=== PATIENT | male | born 1995 | race Caucasian/White ===

== ENCOUNTER 2018-05-10 18:37 | Inpatient (IN) | payer MEDICAID ==
--- NOTE | 2018-05-10 19:20 | CR ---
INDICATION: Decreased oxygen saturation after eating. TECHNIQUE: Chest 1 views COMPARISON: Chest x-ray 01/21/2015 FINDINGS: Cardiovascular and mediastinum: Heart size and vasculature are normal in caliber and appearance. Lungs and pleural spaces: Lungs are clear. No sign of infiltrate or mass. No sign of pleural effusion. No pneumothorax. Bones and soft tissues: Leftward curvature thoracolumbar spine. IMPRESSION: No acute findings and no significant changes from the prior exam. Dictated by Celso Ramsay MD @ May 10 2018 7:18PM Signed by Dr. Celso Ramsay @ May 10 2018 7:19PM
[2018-05-10] MEDS ORDERED: Albuterol/Ipratropium 3.0-0.5 MG/3 ML Neb Soln NEB ONE (19:28)
[2018-05-10] MEDS ORDERED: Sodium Chloride 0.9% 1,000 ML IV ONE (19:28)
--- NOTE | 2018-05-10 19:31 | EDM.PDOC ---
ED HPI GENERAL MEDICAL PROBLEM - General Chief Complaint: Respiratory Problem Stated Complaint: OXYGEN LEVELS DOWN Time Seen by Provider: 05/10/18 19:30 Source of Information: Reports: Patient - History of Present Illness INITIAL COMMENTS - FREE TEXT/NARRATIVE: HISTORY AND PHYSICAL: History of present illness: [Patient presents with dad I private vehicle Dad noticed some hypoxia after dinner tonightAnd brought him in for evaluation patient is in no distress he has a history of DMD is on prednisone 5 mg by mouth daily on initial exam he did have slight wheeze on the right did provide Solu-Medrol and DuoNeb which seemed to improve O2 saturation however with some observation that did again to drop and again requires blow-by oxygen Unable to obtain review of systems ] Review of systems: As per history of present illness and below otherwise all systems reviewed and negative. Past medical history: As per history of present illness and as reviewed below otherwise noncontributory. Surgical history: As per history of present illness and as reviewed below otherwise noncontributory. Social history: No reported history of drug or alcohol abuse. Family history: As per history of present illness and as reviewed below otherwise noncontributory. Physical exam: HEENT: Atraumatic, normocephalic, pupils reactive, negative for conjunctival pallor or scleral icterus, mucous membranes moist, throat clear, neck supple, nontender, trachea midline. Lungs: Clear to auscultation, breath sounds equal bilaterally, chest nontender. Heart: S1S2, regular, negative for clicks, rubs, or JVD. Abdomen: Soft, nondistended, nontender. Negative for masses or hepatosplenomegaly. Negative for costovertebral tenderness. Pelvis: Stable nontender. Genitourinary: Deferred. Rectal: Deferred. Extremities: Atraumatic, negative for cords or calf pain. Neurovascular unremarkable. Neuro: Awake, alert, Exam nonfocal. Diagnostics: [CBC CMP UA troponin blood cultures 2 Chest 1 view EKG ] Therapeutics: normal saline Solu-Medrol 125 mg IV DuoNeb patient admitted for observation ] Impression: [Hypotension Hypoxia ]chronic history of baseline Definitive disposition and diagnosis as appropriate pending reevaluation and review of above. 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 autism Psychiatric History: Reports: Autism - Infectious Disease History Infectious Disease History: Reports: Chicken Pox Social & Family History - Family History Family Medical History: Noncontributory - Tobacco Use Second Hand Smoke Exposure: No - Recreational Drug Use Recreational Drug Use: No ED ROS GENERAL - Review of Systems Review Of Systems: See Below ED EXAM, GENERAL - Physical Exam Exam: See Below Course - Vital Signs Last Recorded V/S: Last Vital Signs Temp 97.9 F 05/10/18 18:56 Pulse 135 H 05/10/18 21:33 Resp 20 05/10/18 21:33 BP 121/89 05/10/18 21:33 Pulse Ox 90 L 05/10/18 21:34 - Orders/Labs/Meds Orders: Active Orders 24 hr Category Date Time Status EKG Documentation Completion [RC] STAT Care 05/10/18 19:28 Active RT Aerosol Therapy [RC] ASDIRECTED Care 05/10/18 19:29 Active CULTURE BLOOD [BC] Stat Lab 05/10/18 19:46 Results CULTURE BLOOD [BC] Stat Lab 05/10/18 19:58 Results Azithromycin [Zithromax] 500 mg Med 05/10/18 21:39 Ordered Sodium Chloride 0.9% [Normal Saline] 250 ml IV ONETIME Blood Culture x2 Reflex Set [OM.PC] Stat Oth 05/10/18 19:30 Ordered Labs: Laboratory Tests 05/10/18 05/10/18 05/10/18 Range/Units 19:10 19:10 20:10 WBC 5.38 (4.0-11.0) K/uL RBC 5.07 (4.50-5.90) M/uL Hgb 16.2 (13.0-17.0) g/dL Hct 47.9 (38.0-50.0) % MCV 94.5 (80.0-98.0) fL MCH 32.0 (27.0-32.0) pg MCHC 33.8 (31.0-37.0) g/dL RDW Std Deviation 47.1 (28.0-62.0) fl RDW Coeff of [place] 14 (11.0-15.0) % Plt Count 228 (150-400) K/uL MPV 8.90 (7.40-12.00) fL Neut % (Auto) 85.3 H (48.0-80.0) % Lymph % (Auto) 7.6 L (16.0-40.0) % [place] % (Auto) 6.7 (0.0-15.0) % Eos % (Auto) 0.0 (0.0-7.0) % Baso % (Auto) 0.4 (0.0-1.5) % Neut # (Auto) 4.6 (1.4-5.7) K/uL Lymph # (Auto) 0.4 L (0.6-2.4) K/uL [place] # (Auto) 0.4 (0.0-0.8) K/uL Eos # (Auto) 0.0 (0.0-0.7) K/uL Baso # (Auto) 0.0 (0.0-0.1) K/uL Nucleated RBC % 0.0 /100WBC Nucleated RBCs # 0 K/uL Lactate (0.20-2.00) mmol/L Sodium 137 (136-148) mmol/L Potassium 4.0 (3.5-5.1) mmol/L Chloride 100 (98-107) mmol/L Carbon Dioxide 28.5 (21.0-32.0) mmol/L BUN 7 (7.0-18.0) mg/dL Creatinine 0.3 L (0.8-1.3) mg/dL Est Cr Clr Drug Dosing TNP Estimated GFR (MDRD) > 60.0 ml/min Glucose 133 H (74-106) mg/dL Calcium 9.4 (8.5-10.1) mg/dL Total Bilirubin 0.4 (0.2-1.0) mg/dL AST 88 H (15-37) IU/L ALT 52 (14-63) IU/L Alkaline Phosphatase 101 (46-116) U/L Troponin I < 0.050 (0.000-0.056) ng/mL Total Protein 7.7 (6.4-8.2) g/dL Albumin 4.0 (3.4-5.0) g/dL Globulin 3.7 (2.6-4.0) g/dL Albumin/Globulin Ratio 1.1 (0.9-1.6) Urine Color YELLOW Urine Appearance CLEAR Urine pH 6.5 (5.0-8.0) Ur Specific [place] 1.010 (1.001-1.035) Urine Protein NEGATIVE (NEGATIVE) mg/dL Urine Glucose (UA) NEGATIVE (NEGATIVE) mg/dL Urine Ketones NEGATIVE (NEGATIVE) mg/dL Urine Occult Blood SMALL H (NEGATIVE) Urine Nitrite NEGATIVE (NEGATIVE) Urine Bilirubin NEGATIVE (NEGATIVE) Urine Urobilinogen 1.0 (<2.0) EU/dL Ur Leukocyte Esterase NEGATIVE (NEGATIVE) Urine RBC 1-2 (0-2/HPF) Urine WBC 0-1 (0-5/HPF) Ur Epithelial Cells RARE (NONE-FEW) Urine Bacteria RARE (NEGATIVE) 05/10/18 Range/Units 20:43 WBC (4.0-11.0) K/uL RBC (4.50-5.90) M/uL Hgb (13.0-17.0) g/dL Hct (38.0-50.0) % MCV (80.0-98.0) fL MCH (27.0-32.0) pg MCHC (31.0-37.0) g/dL RDW Std Deviation (28.0-62.0) fl RDW Coeff of [place] (11.0-15.0) % Plt Count (150-400) K/uL MPV (7.40-12.00) fL Neut % (Auto) (48.0-80.0) % Lymph % (Auto) (16.0-40.0) % [place] % (Auto) (0.0-15.0) % Eos % (Auto) (0.0-7.0) % Baso % (Auto) (0.0-1.5) % Neut # (Auto) (1.4-5.7) K/uL Lymph # (Auto) (0.6-2.4) K/uL [place] # (Auto) (0.0-0.8) K/uL Eos # (Auto) (0.0-0.7) K/uL Baso # (Auto) (0.0-0.1) K/uL Nucleated RBC % /100WBC Nucleated RBCs # K/uL Lactate 1.2 (0.20-2.00) mmol/L Sodium (136-148) mmol/L Potassium (3.5-5.1) mmol/L Chloride (98-107) mmol/L Carbon Dioxide (21.0-32.0) mmol/L BUN (7.0-18.0) mg/dL Creatinine (0.8-1.3) mg/dL Est Cr Clr Drug Dosing Estimated GFR (MDRD) ml/min Glucose (74-106) mg/dL Calcium (8.5-10.1) mg/dL Total Bilirubin (0.2-1.0) mg/dL AST (15-37) IU/L ALT (14-63) IU/L Alkaline Phosphatase (46-116) U/L Troponin I (0.000-0.056) ng/mL Total Protein (6.4-8.2) g/dL Albumin (3.4-5.0) g/dL Globulin (2.6-4.0) g/dL Albumin/Globulin Ratio (0.9-1.6) Urine Color Urine Appearance Urine pH (5.0-8.0) Ur Specific [place] (1.001-1.035) Urine Protein (NEGATIVE) mg/dL Urine Glucose (UA) (NEGATIVE) mg/dL Urine Ketones (NEGATIVE) mg/dL Urine Occult Blood (NEGATIVE) Urine Nitrite (NEGATIVE) Urine Bilirubin (NEGATIVE) Urine Urobilinogen (<2.0) EU/dL Ur Leukocyte Esterase (NEGATIVE) Urine RBC (0-2/HPF) Urine WBC (0-5/HPF) Ur Epithelial Cells (NONE-FEW) Urine Bacteria (NEGATIVE) Meds: Medications Discontinued Medications Generic Name Dose Route Start Last Admin Trade Name Freq PRN Reason Stop Dose Admin Albuterol/Ipratropium 3 ml 05/10/18 19:28 05/10/18 19:54 Duoneb 3.0-0.5 Mg/3 Ml NEB 05/10/18 19:29 3 ml ONETIME ONE Administration Sodium Chloride 1,000 mls @ 999 mls/hr 05/10/18 19:28 05/10/18 19:54 Normal Saline IV 05/10/18 20:28 999 mls/hr STAT ONE Administration Methylprednisolone Sodium Succinate 125 mg 05/10/18 20:53 05/10/18 20:57 Solu-Medrol IVPUSH 05/10/18 20:54 125 mg ONETIME ONE Administration Methylprednisolone Sodium Succinate Confirm 05/10/18 20:54 05/10/18 21:25 Solu-Medrol Administered 05/10/18 20:55 Not Given Dose 125 mg .ROUTE .STK-MED ONE Departure - Departure Time of Disposition: 21:41 Disposition: Admitted As Inpatient 65 Condition: Fair Clinical Impression: Hypoxia - Discharge Information Referrals: PCP,None [Primary Care Provider] - Forms: ED Department Discharge - My Orders Last 24 Hours: My Active Orders 05/10/18 19:28 EKG Documentation Completion [RC] STAT 05/10/18 19:29 RT Aerosol Therapy [RC] ASDIRECTED 05/10/18 19:30 Blood Culture x2 Reflex Set [OM.PC] Stat 05/10/18 19:46 CULTURE BLOOD [BC] Stat 05/10/18 19:58 CULTURE BLOOD [BC] Stat 05/10/18 21:39 Azithromycin [Zithromax] 500 mg Sodium Chloride 0.9% [Normal Saline] 250 ml IV ONETIME - Assessment/Plan Last 24 Hours: My Active Orders 05/10/18 19:28 EKG Documentation Completion [RC] STAT 05/10/18 19:29 RT Aerosol Therapy [RC] ASDIRECTED 05/10/18 19:30 Blood Culture x2 Reflex Set [OM.PC] Stat 05/10/18 19:46 CULTURE BLOOD [BC] Stat 05/10/18 19:58 CULTURE BLOOD [BC] Stat 05/10/18 21:39 Azithromycin [Zithromax] 500 mg Sodium Chloride 0.9% [Normal Saline] 250 ml IV ONETIME
[2018-05-10 19:50] LABS: CHLORIDE,CL 100 mmol/L (98-107); SODIUM,NA 137 mmol/L (136-148)
[2018-05-10] MEDS ORDERED: methylPREDNISolone Sodium Succinate 125 MG/2 ML SDV IVPUSH ONE (20:53)
[2018-05-10] MEDS ORDERED: methylPREDNISolone Sodium Succinate 125 MG/2 ML SDV ONE (20:54)
[2018-05-10] MEDS ORDERED: Azithromycin 500 MG in Sodium Chloride 0.9% 250 ML IV ONE (21:39)
[2018-05-10] MEDS ORDERED: Albuterol/Ipratropium 3.0-0.5 MG/3 ML Neb Soln NEB PRN (23:22)
[2018-05-10] MEDS ORDERED: cefTRIAXone 1 GM in Sodium Chloride 0.9% 50 ML IV SCH (23:30)
[2018-05-11] MEDS: Heparin Sodium 5,000 Units/ML Vial SUBCUT SCH ×2 (00:16→06:30)
[2018-05-11] MEDS ORDERED: OXcarbazepine 300 MG Tab PO ONE (00:30)
[2018-05-11 05:47] LABS: CHLORIDE,CL 104 mmol/L (98-107); SODIUM,NA 137 mmol/L (136-148)
[2018-05-11] MEDS ORDERED: OXcarbazepine 300 MG Tab PO SCH ×2 (06:00→09:00)
[2018-05-11] MEDS ORDERED: predniSONE 10 MG Tab PO SCH (09:00)
--- NOTE | 2018-05-11 09:09 | PCM.HP ---
H&P History of Present Illness - General Date of Service: 05/11/18 Admit Problem/Dx: Admission Diagnosis/Problem Admission Diagnosis/Problem Hypoxia History Limitations: Reports: No Limitations - Related Data Allergies/Adverse Reactions: Allergies Allergy/AdvReac Type Severity Reaction Status Date / Time No Known Allergies Allergy Verified 05/10/18 18:59 Home Medications: Home Meds Lactulose [Chronulac] 15 ml PO TID PRN 01/21/15 [History] OXcarbazepine [Oxcarbazepine] 300 mg PO BID 01/21/15 [History] predniSONE [Prednisone] 10 mg PO DAILY 01/21/15 [History] Enalapril [Vasotec] 5 mg PO Q24H 05/10/18 [History] Past Medical History Other 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 autism Psychiatric History: Reports: Autism - Infectious Disease History Infectious Disease History: Reports: Chicken Pox Social & Family History - Family History Family Medical History: Noncontributory - Tobacco Use Smoking Status *Q: Never Smoker Second Hand Smoke Exposure: No - Caffeine Use Caffeine Use: Reports: None - Recreational Drug Use Recreational Drug Use: No Exam - Vital Signs Vital Signs: Last Vital Signs Temp 98.1 F 05/11/18 04:00 Pulse 128 H 05/11/18 04:00 Resp 18 05/11/18 04:00 BP 111/74 05/11/18 04:00 Pulse Ox 94 L 05/11/18 04:00 Weight: 32.5 kg - Patient Data Lab Results Last 24 hrs: Laboratory Results - last 24 hr 05/10/18 05/10/18 05/10/18 Range/Units 19:10 19:10 20:10 WBC 5.38 (4.0-11.0) K/uL RBC 5.07 (4.50-5.90) M/uL Hgb 16.2 (13.0-17.0) g/dL Hct 47.9 (38.0-50.0) % MCV 94.5 (80.0-98.0) fL MCH 32.0 (27.0-32.0) pg MCHC 33.8 (31.0-37.0) g/dL RDW Std Deviation 47.1 (28.0-62.0) fl RDW Coeff of [place] 14 (11.0-15.0) % Plt Count 228 (150-400) K/uL MPV 8.90 (7.40-12.00) fL Neut % (Auto) 85.3 H (48.0-80.0) % Lymph % (Auto) 7.6 L (16.0-40.0) % [place] % (Auto) 6.7 (0.0-15.0) % Eos % (Auto) 0.0 (0.0-7.0) % Baso % (Auto) 0.4 (0.0-1.5) % Neut # (Auto) 4.6 (1.4-5.7) K/uL Lymph # (Auto) 0.4 L (0.6-2.4) K/uL [place] # (Auto) 0.4 (0.0-0.8) K/uL Eos # (Auto) 0.0 (0.0-0.7) K/uL Baso # (Auto) 0.0 (0.0-0.1) K/uL Nucleated RBC % 0.0 /100WBC Nucleated RBCs # 0 K/uL Lactate (0.20-2.00) mmol/L Sodium 137 (136-148) mmol/L Potassium 4.0 (3.5-5.1) mmol/L Chloride 100 (98-107) mmol/L Carbon Dioxide 28.5 (21.0-32.0) mmol/L BUN 7 (7.0-18.0) mg/dL Creatinine 0.3 L (0.8-1.3) mg/dL Est Cr Clr Drug Dosing TNP Estimated GFR (MDRD) > 60.0 ml/min Glucose 133 H (74-106) mg/dL Calcium 9.4 (8.5-10.1) mg/dL Total Bilirubin 0.4 (0.2-1.0) mg/dL AST 88 H (15-37) IU/L ALT 52 (14-63) IU/L Alkaline Phosphatase 101 (46-116) U/L Troponin I < 0.050 (0.000-0.056) ng/mL Total Protein 7.7 (6.4-8.2) g/dL Albumin 4.0 (3.4-5.0) g/dL Globulin 3.7 (2.6-4.0) g/dL Albumin/Globulin Ratio 1.1 (0.9-1.6) Urine Color YELLOW Urine Appearance CLEAR Urine pH 6.5 (5.0-8.0) Ur Specific [place] 1.010 (1.001-1.035) Urine Protein NEGATIVE (NEGATIVE) mg/dL Urine Glucose (UA) NEGATIVE (NEGATIVE) mg/dL Urine Ketones NEGATIVE (NEGATIVE) mg/dL Urine Occult Blood SMALL H (NEGATIVE) Urine Nitrite NEGATIVE (NEGATIVE) Urine Bilirubin NEGATIVE (NEGATIVE) Urine Urobilinogen 1.0 (<2.0) EU/dL Ur Leukocyte Esterase NEGATIVE (NEGATIVE) Urine RBC 1-2 (0-2/HPF) Urine WBC 0-1 (0-5/HPF) Ur Epithelial Cells RARE (NONE-FEW) Urine Bacteria RARE (NEGATIVE) 05/10/18 05/11/18 05/11/18 Range/Units 20:43 04:55 04:55 WBC 5.04 (4.0-11.0) K/uL RBC 4.31 L (4.50-5.90) M/uL Hgb 13.5 (13.0-17.0) g/dL Hct 40.5 (38.0-50.0) % MCV 94.0 (80.0-98.0) fL MCH 31.3 (27.0-32.0) pg MCHC 33.3 (31.0-37.0) g/dL RDW Std Deviation 46.6 (28.0-62.0) fl RDW Coeff of [place] 14 (11.0-15.0) % Plt Count 225 (150-400) K/uL MPV 9.00 (7.40-12.00) fL Neut % (Auto) 88.3 H (48.0-80.0) % Lymph % (Auto) 9.3 L (16.0-40.0) % [place] % (Auto) 2.2 (0.0-15.0) % Eos % (Auto) 0.0 (0.0-7.0) % Baso % (Auto) 0.2 (0.0-1.5) % Neut # (Auto) 4.5 (1.4-5.7) K/uL Lymph # (Auto) 0.5 L (0.6-2.4) K/uL [place] # (Auto) 0.1 (0.0-0.8) K/uL Eos # (Auto) 0.0 (0.0-0.7) K/uL Baso # (Auto) 0.0 (0.0-0.1) K/uL Nucleated RBC % 0.0 /100WBC Nucleated RBCs # 0 K/uL Lactate 1.2 (0.20-2.00) mmol/L Sodium 137 (136-148) mmol/L Potassium 3.8 (3.5-5.1) mmol/L Chloride 104 (98-107) mmol/L Carbon Dioxide 23.3 (21.0-32.0) mmol/L BUN 8 (7.0-18.0) mg/dL Creatinine < 0.2 L (0.8-1.3) mg/dL Est Cr Clr Drug Dosing 261.82 Estimated GFR (MDRD) > 60.0 ml/min Glucose 113 H (74-106) mg/dL Calcium 8.7 (8.5-10.1) mg/dL Total Bilirubin (0.2-1.0) mg/dL AST (15-37) IU/L ALT (14-63) IU/L Alkaline Phosphatase (46-116) U/L Troponin I (0.000-0.056) ng/mL Total Protein (6.4-8.2) g/dL Albumin (3.4-5.0) g/dL Globulin (2.6-4.0) g/dL Albumin/Globulin Ratio (0.9-1.6) Urine Color Urine Appearance Urine pH (5.0-8.0) Ur Specific [place] (1.001-1.035) Urine Protein (NEGATIVE) mg/dL Urine Glucose (UA) (NEGATIVE) mg/dL Urine Ketones (NEGATIVE) mg/dL Urine Occult Blood (NEGATIVE) Urine Nitrite (NEGATIVE) Urine Bilirubin (NEGATIVE) Urine Urobilinogen (<2.0) EU/dL Ur Leukocyte Esterase (NEGATIVE) Urine RBC (0-2/HPF) Urine WBC (0-5/HPF) Ur Epithelial Cells (NONE-FEW) Urine Bacteria (NEGATIVE) Result Diagrams: 05/11/18 04:55 05/11/18 04:55 Edward Results Last 24 hrs: Microbiology 05/10/18 19:55 Influenza Type A Antigen Screen - Final Nasopharyngeal Swab NEGATIVE INFLUENZA A VIRUS AG Influenza Type B Antigen Screen - Final NEGATIVE INFLUENZA B VIRUS AG 05/10/18 19:58 Anaerobic Blood Culture - Final Blood - Venous - Lab Draw 05/10/18 19:46 Anaerobic Blood Culture - Final Blood - Venous Orders Last 24hrs: Active Orders 24 hr Category Date Time Status Admission Status [Patient Status] [ADT] Stat ADT 05/10/18 21:46 Active Antiembolic Devices [RC] PER UNIT ROUTINE Care 05/10/18 23:24 Active EKG Documentation Completion [RC] STAT Care 05/10/18 19:28 Active Overnight Pulse Oximetry [RC] Click to Edit Care 05/11/18 00:02 Active Oxygen Therapy [RC] PRN Care 05/10/18 23:22 Active RT Aerosol Therapy [RC] ASDIRECTED Care 05/10/18 19:29 Active RT Aerosol Therapy [RC] ASDIRECTED Care 05/10/18 23:24 Active Up ad Rhonda [RC] ASDIRECTED Care 05/10/18 23:22 Active VTE/DVT Education [RC] PER UNIT ROUTINE Care 05/10/18 23:22 Active Vital Signs [RC] Q4H Care 05/10/18 23:22 Active BASIC METABOLIC PANEL,BMP [CHEM] AM Lab 05/12/18 05:11 Ordered BASIC METABOLIC PANEL,BMP [CHEM] AM Lab 05/13/18 05:11 Ordered CBC WITH AUTO DIFF [HEME] AM Lab 05/12/18 05:11 Ordered CBC WITH AUTO DIFF [HEME] AM Lab 05/13/18 05:11 Ordered CULTURE BLOOD [BC] Stat Lab 05/10/18 19:46 Results CULTURE BLOOD [BC] Stat Lab 05/10/18 19:58 Results Albuterol/Ipratropium [DuoNeb 3.0-0.5 MG/3 ML] Med 05/10/18 23:22 Active 3 ml NEB Q4HRRT PRN Azithromycin [Zithromax] 500 mg Med 05/11/18 21:00 Active Sodium Chloride 0.9% [Normal Saline] 250 ml IV Q24H Heparin Sodium Med 05/10/18 23:30 Active 5,000 units SUBCUT Q8H OXcarbazepine [Trileptal] Med 05/11/18 09:00 Active 300 mg PO BID cefTRIAXone [Rocephin] 1 gm Med 05/10/18 23:30 Active Sodium Chloride 0.9% [Normal Saline] 50 ml IV Q24H predniSONE Med 05/11/18 09:00 Active 10 mg PO DAILY Blood Culture x2 Reflex Set [OM.PC] Stat Ot 05/10/18 19:30 Ordered Pulse Oximetry Continuous Monitoring [OM.PC] Routine Ot 05/11/18 00:02 Ordered Sequential Compression Device [OM.PC] Per Unit Routine Ot 05/10/18 23:23 Ordered Resuscitation Status Routine Resus Stat 05/10/18 23:22 Ordered Medication Orders Albuterol/Ipratropium (Duoneb 3.0-0.5 Mg/3 Ml) 3 ml NEB Q4HRRT PRN PRN Reason: Shortness Of Breath/wheezing Heparin Sodium (Porcine) (Heparin Sodium) 5,000 units SUBCUT Q8H [facility] Last Admin: 05/11/18 06:30 Dose: 5,000 units Admin: 05/11/18 00:16 Dose: 5,000 units Ceftriaxone Sodium 1 gm/ (Sodium Chloride) 50 mls @ 100 mls/hr IV Q24H [facility] Last Admin: 05/11/18 00:17 Dose: 100 mls/hr Azithromycin 500 mg/ Sodium (Chloride) 250 mls @ 250 mls/hr IV Q24H [facility] Oxcarbazepine (Trileptal) 300 mg PO BID [facility] Last Admin: 05/11/18 08:54 Dose: 300 mg Prednisone (Prednisone) 10 mg PO DAILY [facility] Last Admin: 05/11/18 08:54 Dose: 10 mg
--- NOTE | 2018-05-11 09:09 | PCM.PN ---
- Patient Data Vitals - Most Recent: Last Vital Signs Temp 98.1 F 05/11/18 04:00 Pulse 128 H 05/11/18 04:00 Resp 18 05/11/18 04:00 BP 111/74 05/11/18 04:00 Pulse Ox 94 L 05/11/18 04:00 Weight - Most Recent: 32.5 kg I&O - Last 24 Hours: Intake & Output 05/10/18 05/11/18 05/11/18 22:59 06:59 14:59 Intake Total 50 Balance 50 Lab Results Last 24 Hours: Laboratory Results - last 24 hr 05/10/18 05/10/18 05/10/18 Range/Units 19:10 19:10 20:10 WBC 5.38 (4.0-11.0) K/uL RBC 5.07 (4.50-5.90) M/uL Hgb 16.2 (13.0-17.0) g/dL Hct 47.9 (38.0-50.0) % MCV 94.5 (80.0-98.0) fL MCH 32.0 (27.0-32.0) pg MCHC 33.8 (31.0-37.0) g/dL RDW Std Deviation 47.1 (28.0-62.0) fl RDW Coeff of [place] 14 (11.0-15.0) % Plt Count 228 (150-400) K/uL MPV 8.90 (7.40-12.00) fL Neut % (Auto) 85.3 H (48.0-80.0) % Lymph % (Auto) 7.6 L (16.0-40.0) % [place] % (Auto) 6.7 (0.0-15.0) % Eos % (Auto) 0.0 (0.0-7.0) % Baso % (Auto) 0.4 (0.0-1.5) % Neut # (Auto) 4.6 (1.4-5.7) K/uL Lymph # (Auto) 0.4 L (0.6-2.4) K/uL [place] # (Auto) 0.4 (0.0-0.8) K/uL Eos # (Auto) 0.0 (0.0-0.7) K/uL Baso # (Auto) 0.0 (0.0-0.1) K/uL Nucleated RBC % 0.0 /100WBC Nucleated RBCs # 0 K/uL Lactate (0.20-2.00) mmol/L Sodium 137 (136-148) mmol/L Potassium 4.0 (3.5-5.1) mmol/L Chloride 100 (98-107) mmol/L Carbon Dioxide 28.5 (21.0-32.0) mmol/L BUN 7 (7.0-18.0) mg/dL Creatinine 0.3 L (0.8-1.3) mg/dL Est Cr Clr Drug Dosing TNP Estimated GFR (MDRD) > 60.0 ml/min Glucose 133 H (74-106) mg/dL Calcium 9.4 (8.5-10.1) mg/dL Total Bilirubin 0.4 (0.2-1.0) mg/dL AST 88 H (15-37) IU/L ALT 52 (14-63) IU/L Alkaline Phosphatase 101 (46-116) U/L Troponin I < 0.050 (0.000-0.056) ng/mL Total Protein 7.7 (6.4-8.2) g/dL Albumin 4.0 (3.4-5.0) g/dL Globulin 3.7 (2.6-4.0) g/dL Albumin/Globulin Ratio 1.1 (0.9-1.6) Urine Color YELLOW Urine Appearance CLEAR Urine pH 6.5 (5.0-8.0) Ur Specific [place] 1.010 (1.001-1.035) Urine Protein NEGATIVE (NEGATIVE) mg/dL Urine Glucose (UA) NEGATIVE (NEGATIVE) mg/dL Urine Ketones NEGATIVE (NEGATIVE) mg/dL Urine Occult Blood SMALL H (NEGATIVE) Urine Nitrite NEGATIVE (NEGATIVE) Urine Bilirubin NEGATIVE (NEGATIVE) Urine Urobilinogen 1.0 (<2.0) EU/dL Ur Leukocyte Esterase NEGATIVE (NEGATIVE) Urine RBC 1-2 (0-2/HPF) Urine WBC 0-1 (0-5/HPF) Ur Epithelial Cells RARE (NONE-FEW) Urine Bacteria RARE (NEGATIVE) 05/10/18 05/11/18 05/11/18 Range/Units 20:43 04:55 04:55 WBC 5.04 (4.0-11.0) K/uL RBC 4.31 L (4.50-5.90) M/uL Hgb 13.5 (13.0-17.0) g/dL Hct 40.5 (38.0-50.0) % MCV 94.0 (80.0-98.0) fL MCH 31.3 (27.0-32.0) pg MCHC 33.3 (31.0-37.0) g/dL RDW Std Deviation 46.6 (28.0-62.0) fl RDW Coeff of [place] 14 (11.0-15.0) % Plt Count 225 (150-400) K/uL MPV 9.00 (7.40-12.00) fL Neut % (Auto) 88.3 H (48.0-80.0) % Lymph % (Auto) 9.3 L (16.0-40.0) % [place] % (Auto) 2.2 (0.0-15.0) % Eos % (Auto) 0.0 (0.0-7.0) % Baso % (Auto) 0.2 (0.0-1.5) % Neut # (Auto) 4.5 (1.4-5.7) K/uL Lymph # (Auto) 0.5 L (0.6-2.4) K/uL [place] # (Auto) 0.1 (0.0-0.8) K/uL Eos # (Auto) 0.0 (0.0-0.7) K/uL Baso # (Auto) 0.0 (0.0-0.1) K/uL Nucleated RBC % 0.0 /100WBC Nucleated RBCs # 0 K/uL Lactate 1.2 (0.20-2.00) mmol/L Sodium 137 (136-148) mmol/L Potassium 3.8 (3.5-5.1) mmol/L Chloride 104 (98-107) mmol/L Carbon Dioxide 23.3 (21.0-32.0) mmol/L BUN 8 (7.0-18.0) mg/dL Creatinine < 0.2 L (0.8-1.3) mg/dL Est Cr Clr Drug Dosing 261.82 Estimated GFR (MDRD) > 60.0 ml/min Glucose 113 H (74-106) mg/dL Calcium 8.7 (8.5-10.1) mg/dL Total Bilirubin (0.2-1.0) mg/dL AST (15-37) IU/L ALT (14-63) IU/L Alkaline Phosphatase (46-116) U/L Troponin I (0.000-0.056) ng/mL Total Protein (6.4-8.2) g/dL Albumin (3.4-5.0) g/dL Globulin (2.6-4.0) g/dL Albumin/Globulin Ratio (0.9-1.6) Urine Color Urine Appearance Urine pH (5.0-8.0) Ur Specific [place] (1.001-1.035) Urine Protein (NEGATIVE) mg/dL Urine Glucose (UA) (NEGATIVE) mg/dL Urine Ketones (NEGATIVE) mg/dL Urine Occult Blood (NEGATIVE) Urine Nitrite (NEGATIVE) Urine Bilirubin (NEGATIVE) Urine Urobilinogen (<2.0) EU/dL Ur Leukocyte Esterase (NEGATIVE) Urine RBC (0-2/HPF) Urine WBC (0-5/HPF) Ur Epithelial Cells (NONE-FEW) Urine Bacteria (NEGATIVE) Edward Results Last 24 Hours: Microbiology 05/10/18 19:55 Influenza Type A Antigen Screen - Final Nasopharyngeal Swab NEGATIVE INFLUENZA A VIRUS AG Influenza Type B Antigen Screen - Final NEGATIVE INFLUENZA B VIRUS AG 05/10/18 19:58 Anaerobic Blood Culture - Final Blood - Venous - Lab Draw 05/10/18 19:46 Anaerobic Blood Culture - Final Blood - Venous Med Orders - Current: Current Medications Albuterol/Ipratropium (Duoneb 3.0-0.5 Mg/3 Ml) 3 ml NEB Q4HRRT PRN PRN Reason: Shortness Of Breath/wheezing Heparin Sodium (Porcine) (Heparin Sodium) 5,000 units SUBCUT Q8H [facility] Last Admin: 05/11/18 06:30 Dose: 5,000 units Ceftriaxone Sodium 1 gm/ (Sodium Chloride) 50 mls @ 100 mls/hr IV Q24H [facility] Last Admin: 05/11/18 00:17 Dose: 100 mls/hr Azithromycin 500 mg/ Sodium (Chloride) 250 mls @ 250 mls/hr IV Q24H [facility] Oxcarbazepine (Trileptal) 300 mg PO BID [facility] Last Admin: 05/11/18 08:54 Dose: 300 mg Prednisone (Prednisone) 10 mg PO DAILY [facility] Last Admin: 05/11/18 08:54 Dose: 10 mg Discontinued Medications Albuterol/Ipratropium (Duoneb 3.0-0.5 Mg/3 Ml) 3 ml NEB ONETIME ONE Stop: 05/10/18 19:29 Last Admin: 05/10/18 19:54 Dose: 3 ml Sodium Chloride (Normal Saline) 1,000 mls @ 999 mls/hr IV STAT ONE Stop: 05/10/18 20:28 Last Admin: 05/10/18 19:54 Dose: 999 mls/hr Azithromycin 500 mg/ Sodium (Chloride) 250 mls @ 250 mls/hr IV ONETIME ONE Stop: 05/10/18 22:38 Last Admin: 05/10/18 22:14 Dose: 250 mls/hr Methylprednisolone Sodium Succinate (Solu-Medrol) 125 mg IVPUSH ONETIME ONE Stop: 05/10/18 20:54 Last Admin: 05/10/18 20:57 Dose: 125 mg Methylprednisolone Sodium Succinate (Solu-Medrol) Confirm Administered Dose 125 mg .ROUTE .STK-MED ONE Stop: 05/10/18 20:55 Last Admin: 05/10/18 21:25 Dose: Not Given Oxcarbazepine (Trileptal) 300 mg PO TID [facility] Last Admin: 05/11/18 06:34 Dose: Not Given Oxcarbazepine (Trileptal) 300 mg PO ONETIME ONE Stop: 05/11/18 00:31 Last Admin: 05/11/18 00:16 Dose: 300 mg
[2018-05-11 11:29] VITALS: BP 115/82
--- NOTE | 2018-05-11 11:52 | PCM.HP ---
H&P History of Present Illness - General Date of Service: 05/10/18 Admit Problem/Dx: Admission Diagnosis/Problem Admission Diagnosis/Problem Hypoxia - History of Present Illness Initial Comments - Free Text/Narative: 23 yo male with pmh of Duchenne muscular dystrophy who presents to the ED after his father noted him to be hypoxic at home after eating dinner. Mother reports he has not been himself the past week. At baseline he is nonverbal but he has been more lethargic and has had a cough. No fever has been noted. Multiple family members have had a cold. He was was noted to be sating in the 80s on room air with course breath sounds. He was given nebulizer and solumedrol in the ED. He was requiring four liters nasal canula to keep sats above 90%. He is known to be tachycardic at home which family has been told is due to his dystrophy. - Related Data Allergies/Adverse Reactions: Allergies Allergy/AdvReac Type Severity Reaction Status Date / Time No Known Allergies Allergy Verified 05/10/18 18:59 Home Medications: Home Meds Lactulose [Chronulac] 15 ml PO TID PRN 01/21/15 [History] OXcarbazepine [Oxcarbazepine] 300 mg PO BID 01/21/15 [History] predniSONE [Prednisone] 10 mg PO DAILY 01/21/15 [History] Enalapril [Vasotec] 5 mg PO Q24H 05/10/18 [History] Azithromycin [Zithromax] 250 mg PO DAILY #4 tab 05/11/18 [Rx] Past Medical History Other 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 autism Psychiatric History: Reports: Autism - Infectious Disease History Infectious Disease History: Reports: Chicken Pox Social & Family History - Family History Family Medical History: Noncontributory - Tobacco Use Smoking Status *Q: Never Smoker Second Hand Smoke Exposure: No - Caffeine Use Caffeine Use: Reports: None - Recreational Drug Use Recreational Drug Use: No H&P Review of Systems - Review of Systems: Review Of Systems: Unable To Obtain Exam - Exam Exam: See Below - Vital Signs Vital Signs: Last Vital Signs Temp 36.7 C 05/11/18 11:28 Pulse 126 H 05/11/18 11:28 Resp 20 05/11/18 11:28 BP 115/82 05/11/18 11:28 Pulse Ox 96 05/11/18 11:28 Weight: 32.5 kg - Exam General: No: Severe Distress HEENT: Mucosa Moist & [place] Lungs: Clear to Auscultation, Normal Respiratory Effort Cardiovascular: Regular Rhythm, Tachycardia GI/Abdominal Exam: Soft, Non-Tender Extremities: Other (atrophy of legs and arms) Skin: Warm, Dry, Intact - Patient Data Lab Results Last 24 hrs: Laboratory Results - last 24 hr 05/10/18 05/10/18 05/10/18 Range/Units 19:10 19:10 20:10 WBC 5.38 (4.0-11.0) K/uL RBC 5.07 (4.50-5.90) M/uL Hgb 16.2 (13.0-17.0) g/dL Hct 47.9 (38.0-50.0) % MCV 94.5 (80.0-98.0) fL MCH 32.0 (27.0-32.0) pg MCHC 33.8 (31.0-37.0) g/dL RDW Std Deviation 47.1 (28.0-62.0) fl RDW Coeff of [place] 14 (11.0-15.0) % Plt Count 228 (150-400) K/uL MPV 8.90 (7.40-12.00) fL Neut % (Auto) 85.3 H (48.0-80.0) % Lymph % (Auto) 7.6 L (16.0-40.0) % [place] % (Auto) 6.7 (0.0-15.0) % Eos % (Auto) 0.0 (0.0-7.0) % Baso % (Auto) 0.4 (0.0-1.5) % Neut # (Auto) 4.6 (1.4-5.7) K/uL Lymph # (Auto) 0.4 L (0.6-2.4) K/uL [place] # (Auto) 0.4 (0.0-0.8) K/uL Eos # (Auto) 0.0 (0.0-0.7) K/uL Baso # (Auto) 0.0 (0.0-0.1) K/uL Nucleated RBC % 0.0 /100WBC Nucleated RBCs # 0 K/uL Lactate (0.20-2.00) mmol/L Sodium 137 (136-148) mmol/L Potassium 4.0 (3.5-5.1) mmol/L Chloride 100 (98-107) mmol/L Carbon Dioxide 28.5 (21.0-32.0) mmol/L BUN 7 (7.0-18.0) mg/dL Creatinine 0.3 L (0.8-1.3) mg/dL Est Cr Clr Drug Dosing TNP Estimated GFR (MDRD) > 60.0 ml/min Glucose 133 H (74-106) mg/dL Calcium 9.4 (8.5-10.1) mg/dL Total Bilirubin 0.4 (0.2-1.0) mg/dL AST 88 H (15-37) IU/L ALT 52 (14-63) IU/L Alkaline Phosphatase 101 (46-116) U/L Troponin I < 0.050 (0.000-0.056) ng/mL Total Protein 7.7 (6.4-8.2) g/dL Albumin 4.0 (3.4-5.0) g/dL Globulin 3.7 (2.6-4.0) g/dL Albumin/Globulin Ratio 1.1 (0.9-1.6) Urine Color YELLOW Urine Appearance CLEAR Urine pH 6.5 (5.0-8.0) Ur Specific Allred 1.010 (1.001-1.035) Urine Protein NEGATIVE (NEGATIVE) mg/dL Urine Glucose (UA) NEGATIVE (NEGATIVE) mg/dL Urine Ketones NEGATIVE (NEGATIVE) mg/dL Urine Occult Blood SMALL H (NEGATIVE) Urine Nitrite NEGATIVE (NEGATIVE) Urine Bilirubin NEGATIVE (NEGATIVE) Urine Urobilinogen 1.0 (<2.0) EU/dL Ur Leukocyte Esterase NEGATIVE (NEGATIVE) Urine RBC 1-2 (0-2/HPF) Urine WBC 0-1 (0-5/HPF) Ur Epithelial Cells RARE (NONE-FEW) Urine Bacteria RARE (NEGATIVE) 05/10/18 05/11/18 05/11/18 Range/Units 20:43 04:55 04:55 WBC 5.04 (4.0-11.0) K/uL RBC 4.31 L (4.50-5.90) M/uL Hgb 13.5 (13.0-17.0) g/dL Hct 40.5 (38.0-50.0) % MCV 94.0 (80.0-98.0) fL MCH 31.3 (27.0-32.0) pg MCHC 33.3 (31.0-37.0) g/dL RDW Std Deviation 46.6 (28.0-62.0) fl RDW Coeff of [place] 14 (11.0-15.0) % Plt Count 225 (150-400) K/uL MPV 9.00 (7.40-12.00) fL Neut % (Auto) 88.3 H (48.0-80.0) % Lymph % (Auto) 9.3 L (16.0-40.0) % [place] % (Auto) 2.2 (0.0-15.0) % Eos % (Auto) 0.0 (0.0-7.0) % Baso % (Auto) 0.2 (0.0-1.5) % Neut # (Auto) 4.5 (1.4-5.7) K/uL Lymph # (Auto) 0.5 L (0.6-2.4) K/uL [place] # (Auto) 0.1 (0.0-0.8) K/uL Eos # (Auto) 0.0 (0.0-0.7) K/uL Baso # (Auto) 0.0 (0.0-0.1) K/uL Nucleated RBC % 0.0 /100WBC Nucleated RBCs # 0 K/uL Lactate 1.2 (0.20-2.00) mmol/L Sodium 137 (136-148) mmol/L Potassium 3.8 (3.5-5.1) mmol/L Chloride 104 (98-107) mmol/L Carbon Dioxide 23.3 (21.0-32.0) mmol/L BUN 8 (7.0-18.0) mg/dL Creatinine < 0.2 L (0.8-1.3) mg/dL Est Cr Clr Drug Dosing 261.82 Estimated GFR (MDRD) > 60.0 ml/min Glucose 113 H (74-106) mg/dL Calcium 8.7 (8.5-10.1) mg/dL Total Bilirubin (0.2-1.0) mg/dL AST (15-37) IU/L ALT (14-63) IU/L Alkaline Phosphatase (46-116) U/L Troponin I (0.000-0.056) ng/mL Total Protein (6.4-8.2) g/dL Albumin (3.4-5.0) g/dL Globulin (2.6-4.0) g/dL Albumin/Globulin Ratio (0.9-1.6) Urine Color Urine Appearance Urine pH (5.0-8.0) Ur Specific [place]red (1.001-1.035) Urine Protein (NEGATIVE) mg/dL Urine Glucose (UA) (NEGATIVE) mg/dL Urine Ketones (NEGATIVE) mg/dL Urine Occult Blood (NEGATIVE) Urine Nitrite (NEGATIVE) Urine Bilirubin (NEGATIVE) Urine Urobilinogen (<2.0) EU/dL Ur Leukocyte Esterase (NEGATIVE) Urine RBC (0-2/HPF) Urine WBC (0-5/HPF) Ur Epithelial Cells (NONE-FEW) Urine Bacteria (NEGATIVE) Result Diagrams: 05/11/18 04:55 05/11/18 04:55 Edward Results Last 24 hrs: Microbiology 05/10/18 19:55 Influenza Type A Antigen Screen - Final Nasopharyngeal Swab NEGATIVE INFLUENZA A VIRUS AG Influenza Type B Antigen Screen - Final NEGATIVE INFLUENZA B VIRUS AG 05/10/18 19:58 Anaerobic Blood Culture - Final Blood - Venous - Lab Draw 05/10/18 19:46 Anaerobic Blood Culture - Final Blood - Venous Problem List Initiated/Reviewed/Updated: Yes Orders Last 24hrs: Active Orders 24 hr Category Date Time Status Admission Status [Patient Status] [ADT] Stat ADT 05/10/18 21:46 Active Antiembolic Devices [RC] PER UNIT ROUTINE Care 05/10/18 23:24 Active EKG Documentation Completion [RC] STAT Care 05/10/18 19:28 Active Overnight Pulse Oximetry [RC] Click to Edit Care 05/11/18 00:02 Active Oxygen Therapy [RC] PRN Care 05/10/18 23:22 Active RT Aerosol Therapy [RC] ASDIRECTED Care 05/10/18 19:29 Active RT Aerosol Therapy [RC] ASDIRECTED Care 05/10/18 23:24 Active Ready for Discharge [RC] PER UNIT ROUTINE Care 05/11/18 11:42 Ordered Up ad Rhonda [RC] ASDIRECTED Care 05/10/18 23:22 Active VTE/DVT Education [RC] PER UNIT ROUTINE Care 05/10/18 23:22 Active Vital Signs [RC] Q4H Care 05/10/18 23:22 Active BASIC METABOLIC PANEL,BMP [CHEM] AM Lab 05/12/18 05:11 Ordered BASIC METABOLIC PANEL,BMP [CHEM] AM Lab 05/13/18 05:11 Ordered CBC WITH AUTO DIFF [HEME] AM Lab 05/12/18 05:11 Ordered CBC WITH AUTO DIFF [HEME] AM Lab 05/13/18 05:11 Ordered CULTURE BLOOD [BC] Stat Lab 05/10/18 19:46 Results CULTURE BLOOD [BC] Stat Lab 05/10/18 19:58 Results Albuterol/Ipratropium [DuoNeb 3.0-0.5 MG/3 ML] Med 05/10/18 23:22 Active 3 ml NEB Q4HRRT PRN Azithromycin [Zithromax] 500 mg Med 05/11/18 21:00 Active Sodium Chloride 0.9% [Normal Saline] 250 ml IV Q24H Heparin Sodium Med 05/10/18 23:30 Active 5,000 units SUBCUT Q8H OXcarbazepine [Trileptal] Med 05/11/18 09:00 Active 300 mg PO BID cefTRIAXone [Rocephin] 1 gm Med 05/10/18 23:30 Active Sodium Chloride 0.9% [Normal Saline] 50 ml IV Q24H predniSONE Med 05/11/18 09:00 Active 10 mg PO DAILY Blood Culture x2 Reflex Set [OM.PC] Stat Oth 05/10/18 19:30 Ordered Pulse Oximetry Continuous Monitoring [OM.PC] Routine Oth 05/11/18 00:02 Ordered Sequential Compression Device [OM.PC] Per Unit Routine Oth 05/10/18 23:23 Ordered Resuscitation Status Routine Resus Stat 05/10/18 23:22 Ordered Medication Orders Albuterol/Ipratropium (Duoneb 3.0-0.5 Mg/3 Ml) 3 ml NEB Q4HRRT PRN PRN Reason: Shortness Of Breath/wheezing Heparin Sodium (Porcine) (Heparin Sodium) 5,000 units SUBCUT Q8H [facility] Last Admin: 05/11/18 06:30 Dose: 5,000 units Admin: 05/11/18 00:16 Dose: 5,000 units Ceftriaxone Sodium 1 gm/ (Sodium Chloride) 50 mls @ 100 mls/hr IV Q24H [facility] Last Admin: 05/11/18 00:17 Dose: 100 mls/hr Azithromycin 500 mg/ Sodium (Chloride) 250 mls @ 250 mls/hr IV Q24H [facility] Oxcarbazepine (Trileptal) 300 mg PO BID [facility] Last Admin: 05/11/18 08:54 Dose: 300 mg Prednisone (Prednisone) 10 mg PO DAILY [facility] Last Admin: 05/11/18 08:54 Dose: 10 mg Assessment/Plan Comment:: 23 yo male admitted for hypoxia. No leukocytosis, fever, and CXR is clear. Due to symptoms concerning of respiratory infection he was treated with Rocephin and azithromycin and monitored overnight. This morning he is sating 95% on room air. Family is requesting discharge. He was discharged home and given a prescription for Azithromycin 250 mg for four more days.
[2018-05-11] MEDS ORDERED: Azithromycin 500 MG in Sodium Chloride 0.9% 250 ML IV SCH (21:00)
== END 2018-05-11 13:35 | disposition home or self-care (01) | DRG 206 ==
LOC: MW.ED 18:37 → MW.MS 21:46
PROVIDERS: ADMIT Internal Medicine; ATTEND Internal Medicine
DX: J98.8 Other specified respiratory disorders (principal); F84.0 Autistic disorder; R09.02 Hypoxemia; G71.01 Duchenne or Becker muscular dystrophy; R06.2 Wheezing; I95.9 Hypotension, unspecified; Z79.52 Long term (current) use of systemic steroids; Z79.899 Other long term (current) drug therapy
CPT/HCPCS: 36415; 71045; 80053; 81001; 83605; 84484; 85025; 87040 ×2; 87804 ×2; 93005; 94640; J2930; J7040; 80048; 96361; 96365; 96375; 99284-25; A9270-GY; J0456; J0696; J1644; J7050; J7620-GY

== ENCOUNTER 2018-05-11 17:13 | Emergency (ER) | payer MEDICAID ==
[2018-05-11] MEDS ORDERED: Albuterol/Ipratropium 3.0-0.5 MG/3 ML Neb Soln NEB ONE ×2 (17:23→18:13)
[2018-05-11] MEDS ORDERED: Sodium Chloride 0.9% 1,000 ML IV ONE (18:07)
--- NOTE | 2018-05-11 18:07 | EDM.PDOC ---
ED HPI GENERAL MEDICAL PROBLEM - General Chief Complaint: Respiratory Problem Stated Complaint: BREATHING PROBLEMS Time Seen by Provider: 05/11/18 17:16 Source of Information: Reports: Family History Limitations: Reports: Other (patient severe autism and non vocal) - History of Present Illness INITIAL COMMENTS - FREE TEXT/NARRATIVE: HISTORY AND PHYSICAL: History of present illness: Patient is a 23-year-old male who presents emergency room today with his mother and father with concerns of low oxygen saturation. Patient has a history of Duchenne's muscular dystrophy as well as severe autism and is not able to verbalize for himself. Patient was in the ER yesterday and was admitted for the same concern and was admitted overnight. A full workup had been done at that time, received IV antibiotics, and patient was sent home on outpatient antibiotics. Patient's parents monitor his oxygen levels at home and state that after discharge today from the hospital a few hours later his oxygen dropped to the low 70s. They immediately came to the ED. Parents state he has been eating and drinking per his normal and are not able to pinpoint any other concerns. Parents deny vomiting, change in behavior, lethargy, diarrhea, constipation, change in bowel, change in urine, fevers or rashes. Review of systems: As per history of present illness and below otherwise all systems reviewed and negative. Past medical history: As per history of present illness and as reviewed below otherwise noncontributory. Surgical history: As per history of present illness and as reviewed below otherwise noncontributory. Social history: See social history for further information Family history: As per history of present illness and as reviewed below otherwise noncontributory. Physical exam: General: Patient is in no acute distress. Acting per his normal self, per parents. HEENT: Atraumatic, normocephalic, pupils equal and reactive bilaterally, negative for conjunctival pallor or scleral icterus, mucous membranes moist, TMs normal bilaterally, throat clear, neck supple, nontender, trachea midline. No drooling or trismus noted. No meningeal signs. No hot potato voice noted. Lungs: Clear to auscultation, breath sounds equal bilaterally, chest nontender. Heart: S1S2, regular rate and rhythm without overt murmur Abdomen: Soft, nondistended, nontender. Negative for masses or hepatosplenomegaly. Negative for costovertebral tenderness. Pelvis: Stable nontender. Genitourinary: Deferred. Rectal: Deferred. Skin: Intact, warm, dry. No lesions or rashes noted. Extremities: Atraumatic, wheelchair bound (normal variance), negative for cords or calf pain. Neurovascular unremarkable. Neuro: Awake, alert, oriented. Cranial nerves II through XII unremarkable. Cerebellum unremarkable. Motor and sensory unremarkable throughout. Exam nonfocal. Notes: Patient had been discharged from the medical surgical floor a few hours prior to presenting to the emergency room. Dr. Mon was consulted on this case is agreeable to readmit admitting the patient for hypoxia. Routine labs and chest x -ray will be obtained. Will hold on doing D-Dimer at this time until evaluated by the hospitalist. Upon waiting for admission and the patient's oxygen saturation dropped to mid 80s while on blow-by per hour RT. Dr. Mon was informed of this and requested that the patient be placed on BiPAP and d-dimer was ordered at this time. Patient O2 is 89-98% depending on if he is awake or asleep. Yaa was updated on this and requests transfer as we do not have any ICU beds available. Dr. Gleason at [facility] was consult did on this case. He is agreeable to accepting this patient for further evaluation and management. Patient will be transferred via ground EMS. Family is made aware. We'll continue to monitor. Patient's d-dimer did come back slightly elevated. Lovenox was given Diagnostics: CBC, CMP, chest x-ray, lactic, ddimer Therapeutics: IV fluid, DuoNeb, blow-by oxygen, Solumedrol, lovenox, bipap, ativan Impression: Hypoxia h/o muscular dystrophy h/o autism Plan: Transfer to [facility] - Dr Gleason accepted Definitive disposition and diagnosis as appropriate pending reevaluation and review of above. - Related Data Allergies Allergy/AdvReac Type Severity Reaction Status Date / Time No Known Allergies Allergy Verified 05/10/18 18:59 Home Meds: Home Meds Lactulose [Chronulac] 15 ml PO TID PRN 01/21/15 [History] OXcarbazepine [Oxcarbazepine] 300 mg PO BID 01/21/15 [History] predniSONE [Prednisone] 10 mg PO DAILY 10/27/15 [History] Enalapril [Vasotec] 5 mg PO Q24H 05/10/18 [History] Azithromycin [Zithromax] 250 mg PO DAILY #4 tab 05/11/18 [Rx] Past Medical History Musculoskeletal History: Reports: Muscular Dystrophy Other 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 autism Psychiatric History: Reports: Autism - Infectious Disease History Infectious Disease History: Reports: Chicken Pox Social & Family History - Family History Family Medical History: Noncontributory - Tobacco Use Smoking Status *Q: Never Smoker - Caffeine Use Caffeine Use: Reports: None ED ROS GENERAL - Review of Systems Review Of Systems: ROS reveals no pertinent complaints other than HPI. ED EXAM, GENERAL - Physical Exam Exam: See Below (see dictation) Course - Vital Signs Last Recorded V/S: Last Vital Signs Temp 97.6 F 05/11/18 17:24 Pulse 139 H 05/11/18 19:04 Resp 28 H 05/11/18 19:04 BP 161/109 H 05/11/18 19:04 Pulse Ox 95 05/11/18 19:04 - Orders/Labs/Meds Orders: Active Orders 24 hr Category Date Time Status Admission Status [Patient Status] [ADT] Stat ADT 05/11/18 17:39 Active Oxygen Therapy Adult [Oxygen Therapy, ED] [RC] Care 05/11/18 17:24 Active ASDIRECTED RT Aerosol Therapy [RC] ASDIRECTED Care 05/11/18 17:23 Active Medication Orders Sodium Chloride (Normal Saline) 1,000 mls @ 150 mls/hr IV STAT ONE Stop: 05/12/18 00:46 Last Admin: 05/11/18 19:10 Dose: 150 mls/hr Labs: Laboratory Tests 05/11/18 05/11/18 05/11/18 Range/Units 17:50 17:50 17:50 WBC 9.85 (4.0-11.0) K/uL RBC 4.61 (4.50-5.90) M/uL Hgb 14.6 (13.0-17.0) g/dL Hct 43.5 (38.0-50.0) % MCV 94.4 (80.0-98.0) fL MCH 31.7 (27.0-32.0) pg MCHC 33.6 (31.0-37.0) g/dL RDW Std Deviation 46.7 (28.0-62.0) fl RDW Coeff of [place] 14 (11.0-15.0) % Plt Count 216 (150-400) K/uL MPV 8.30 (7.40-12.00) fL Neut % (Auto) 79.3 (48.0-80.0) % Lymph % (Auto) 9.8 L (16.0-40.0) % [place] % (Auto) 10.8 (0.0-15.0) % Eos % (Auto) 0.0 (0.0-7.0) % Baso % (Auto) 0.1 (0.0-1.5) % Neut # (Auto) 7.8 H (1.4-5.7) K/uL Lymph # (Auto) 1.0 (0.6-2.4) K/uL [place] # (Auto) 1.1 H (0.0-0.8) K/uL Eos # (Auto) 0.0 (0.0-0.7) K/uL Baso # (Auto) 0.0 (0.0-0.1) K/uL Nucleated RBC % 0.0 /100WBC Nucleated RBCs # 0 K/uL Lactate 1.6 (0.20-2.00) mmol/L Sodium 137 (136-148) mmol/L Potassium 3.3 L (3.5-5.1) mmol/L Chloride 101 (98-107) mmol/L Carbon Dioxide 27.2 (21.0-32.0) mmol/L BUN 8 (7.0-18.0) mg/dL Creatinine 0.2 L (0.8-1.3) mg/dL Est Cr Clr Drug Dosing TNP Estimated GFR (MDRD) > 60.0 ml/min Glucose 111 H (74-106) mg/dL Calcium 9.2 (8.5-10.1) mg/dL Total Bilirubin 0.4 (0.2-1.0) mg/dL AST 222 H (15-37) IU/L ALT 93 H (14-63) IU/L Alkaline Phosphatase 80 (46-116) U/L Total Protein 7.3 (6.4-8.2) g/dL Albumin 3.7 (3.4-5.0) g/dL Globulin 3.6 (2.6-4.0) g/dL Albumin/Globulin Ratio 1.0 (0.9-1.6) Meds: Medications Generic Name Dose Route Start Last Admin Trade Name Trino PRN Reason Stop Dose Admin Sodium Chloride 1,000 mls @ 150 mls/hr 05/11/18 18:07 05/11/18 19:10 Normal Saline IV 05/12/18 00:46 150 mls/hr STAT ONE Administration Discontinued Medications Generic Name Dose Route Start Last Admin Trade Name Abelardoq PRN Reason Stop Dose Admin Albuterol/Ipratropium 3 ml 05/11/18 17:23 05/11/18 17:30 Duoneb 3.0-0.5 Mg/3 Ml NEB 05/11/18 17:24 3 ml ONETIME ONE Administration Albuterol/Ipratropium 3 ml 05/11/18 18:13 05/11/18 18:30 Duoneb 3.0-0.5 Mg/3 Ml NEB 05/11/18 18:14 3 ml ONETIME ONE Administration Enoxaparin Sodium 30 mg 05/11/18 19:37 05/11/18 20:11 Lovenox SUBCUT 05/11/18 19:38 30 mg ONETIME ONE Administration Lorazepam 0.5 mg 05/11/18 18:44 Ativan IM 05/11/18 18:45 ONETIME ONE Lorazepam 0.5 mg 05/11/18 18:45 05/11/18 19:03 Ativan IVPUSH 05/11/18 18:46 0.5 mg ONETIME ONE Administration Methylprednisolone Sodium Succinate 40 mg 05/11/18 18:13 05/11/18 18:30 Solu-Medrol IVPUSH 05/11/18 18:14 40 mg ONETIME ONE Administration Departure - Departure Time of Disposition: 19:52 Disposition: DC/Tfer to Acute Hospital 02 Clinical Impression: Hypoxia, History of muscular dystrophy, History of autism, Elevated d-dimer - Discharge Information - My Orders Last 24 Hours: My Active Orders 05/11/18 17:23 RT Aerosol Therapy [RC] ASDIRECTED 05/11/18 17:24 Oxygen Therapy Adult [Oxygen Therapy, ED] [RC] ASDIRECTED 05/11/18 17:39 Admission Status [Patient Status] [ADT] Stat - Assessment/Plan Last 24 Hours: My Active Orders 05/11/18 17:23 RT Aerosol Therapy [RC] ASDIRECTED 05/11/18 17:24 Oxygen Therapy Adult [Oxygen Therapy, ED] [RC] ASDIRECTED 05/11/18 17:39 Admission Status [Patient Status] [ADT] Stat
[2018-05-11] MEDS ORDERED: methylPREDNISolone Sodium Succinate 40 MG/1 ML SDV IVPUSH ONE (18:13)
[2018-05-11 18:26] LABS: CHLORIDE,CL 101 mmol/L (98-107); SODIUM,NA 137 mmol/L (136-148)
--- NOTE | 2018-05-11 18:31 | CR ---
INDICATION: hypoxia TECHNIQUE: Chest 1 view. COMPARISON: 05/10/18 FINDINGS: Cardiovascular and mediastinum: Heart size and vasculature are normal in caliber and appearance. Mediastinum is within normal limits. Lungs and pleural space: Lungs are clear. No sign of infiltrate or mass. No sign of pleural effusion. No pneumothorax. Bones and soft tissues: No significant findings. IMPRESSION: Unremarkable chest. Dictated by: Manav Mahoney MD @ 05/11/2018 18:31:35 (Electronically Signed)
[2018-05-11] MEDS ORDERED: LORazepam 2 MG/ML SDV IM ONE (18:44)
[2018-05-11] MEDS ORDERED: LORazepam 2 MG/ML SDV IVPUSH ONE ×2 (18:45→20:40)
[2018-05-11] MEDS ORDERED: Enoxaparin 60 MG/0.6 ML Syringe SUBCUT ONE (19:37)
[2018-05-11 23:37] VITALS: BP 145/113
== END 2018-05-11 20:40 ==
LOC: MW.ED 17:13 → UNDOADMOB 17:55 → MW.MS 17:55 → UNDODISOB 23:06
DX: R09.02 Hypoxemia (principal); G71.00 Muscular dystrophy, unspecified; F84.0 Autistic disorder; R79.1 Abnormal coagulation profile; Z79.899 Other long term (current) drug therapy
CPT/HCPCS: 36415; 71045; 80053; 83605; 85025; 85379; 94660; 96361; 96374; 96375; 96376; 99285; J1650; J2060; J2920; J7040; J7620-GY